=== PATIENT | male | born 2000 | race Caucasian/White ===

== ENCOUNTER 2018-06-14 15:07 | Emergency (ER) | payer OTHER ==
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
[2018-06-14 16:48] VITALS: BP 123/74
== END 2018-06-14 16:45 | disposition home or self-care (01) ==
DX: S80.211A Abrasion, right knee, initial encounter (principal); S80.212A Abrasion, left knee, initial encounter; M25.561 Pain in right knee; V29.9XXA Motorcycle rider (driver) (passenger) injured in unspecified traffic accident, initial encounter; Y92.410 Unspecified street and highway as the place of occurrence of the external cause; Y99.8 Other external cause status
CPT/HCPCS: L1830